=== PATIENT | female | born 1985 | race Caucasian/White ===

== ENCOUNTER → 2017-11-22 | Outpatient (CLI) | payer OTHER ==
[~2017-11-22] MED LIST: AMOXICILLIN500 M2 PO; ANTIBIOTIC O500 U/GM TP; BACTRIM DS 8001 TA1 PO; BACTRIM DS 8001 TAB PO; BUSPAR5 MG PO; CELEXA20 MG PO; CIPROFLOXACIN500 MG PO; CYCLOBENZAPRINE10 MG PO; CYCLOBENZAPRINE5 M3 PO; EFFEXOR XR75 M1 PO; GABAPENTIN300 MG PO; IBUPROFEN400 MG PO; KEFLEX500 M1 PO; MOTRIN800 MG PO; Motrin,Rufen800 MG PO; NEURONTIN400 MG PO; NORCO 5-325 TA1 EACH PO; OMEPRAZOLE20 M2 PO; PEPCID20 MG PO; PROAIR HFA0.09 MG/AC INH; PROAIR HFA8.5 GM INH; PROZAC20 MG PO; SUBOXONE 8 MG-1 EACH SL; ULTRAM50 MG PO; ZUBSOLV 5.7-1.1 EACH SL
[2017-11-23 08:20] LABS: RHEUMATOID ARTHRITIS FACTOR 18.9 IU/mL (0.0-13.9)
[2017-11-23 12:06] LABS: ANTI-SMOOTH MUSCLE ANTIBODY 14 Units (0-19)
== END | disposition home or self-care (01) ==
LOC: LAB 08:53
PROVIDERS: Pediatrics
DX: M54.5 Low back pain (principal)

== ENCOUNTER → 2020-02-14 | Outpatient (CLI) | payer OTHER | END | disposition home or self-care (01) | LOC: COVID19 00:36 | DX: Z11.59 Encounter for screening for other viral diseases (principal) ==

== ENCOUNTER → 2023-12-07 | Outpatient (CLI) | payer OTHER ==
[2023-12-07 11:50] LABS: BASO # 0.1 10*3/uL (0.0-0.1); BASO % 0.9 % (0.0-1.0); EOS # 0.3 10*3/uL (0.0-0.4); HEMATOCRIT 45.5 % (37.0-47.0); LYMPH # 2.6 10*3/uL (1.3-4.4); LYMPH % 27.9 % (27.0-41.0); MEAN CELL VOLUME 90.8 fl (81.0-99.0); MEAN CORPUSCULAR HGB 29.5 pg (27.0-31.0); MEAN CORPUSCULAR HGB CONC 32.5 g/dl (33.0-37.0); MEAN PLATELET VOLUME 9.7 fl (9.6-12.3); MONO # 0.6 10*3/uL (0.1-1.0); NEUT # 5.8 10*3/uL (2.3-7.9); NEUT % 61.9 % (47.0-73.0); PLATELET COUNT AUTOMATED 358 10*3/uL (130-400); RED BLOOD COUNT 5.01 10*6/uL (4.10-5.10); RED CELL DISTRI WIDTH 12.8 % (0-14.5); WHITE BLOOD COUNT 9.3 10*3/uL (4.8-10.8)
[2023-12-07 12:08] LABS: ALKALINE PHOSPHATASE 88 U/L (46-116); BUN 7 mg/dl (9-23); CHLORIDE 102 mmol/L (98-107); POTASSIUM 3.7 mmol/L (3.4-5.1); SGPT/ALT 16 U/L (5-49); TOTAL PROTEIN 7.6 gm/dL (6.0-8.0)
== END | disposition home or self-care (01) ==
LOC: LAB 11:08
PROVIDERS: ATTEND Nurse Practitioner Family
DX: I11.0 Hypertensive heart disease with heart failure (principal); I50.9 Heart failure, unspecified; R06.02 Shortness of breath; Z87.891 Personal history of nicotine dependence

== ENCOUNTER 2024-03-12 13:12 | Inpatient (IN) | payer OTHER ==
[~2024-03-12] VITALS: Ht 170.1 cm; Wt 88.5 kg
[2024-03-12 13:17] VITALS: BP 123/81
[2024-03-12 13:49] LABS: BASO # 0.1 10*3/uL (0.0-0.1); BASO % 0.6 % (0.0-1.0); EOS # 0.5 10*3/uL (0.0-0.4); EOS % 3.6 % (1.0-4.0); LYMPH # 2.3 10*3/uL (1.3-4.4); LYMPH % 17.9 % (27.0-41.0); MEAN CELL VOLUME 91.4 fl (81.0-99.0); MEAN CORPUSCULAR HGB 29.3 pg (27.0-31.0); MEAN PLATELET VOLUME 10.1 fl (9.6-12.3); MONO # 0.6 10*3/uL (0.1-1.0); MONO % 4.9 % (3.0-9.0); NEUT # 9.2 10*3/uL (2.3-7.9); NEUT % 72.4 % (47.0-73.0); PLATELET COUNT AUTOMATED 360 10*3/uL (130-400); RED BLOOD COUNT 5.47 10*6/uL (4.10-5.10); RED CELL DISTRI WIDTH 12.4 % (0-14.5); WHITE BLOOD COUNT 12.7 10*3/uL (4.8-10.8)
[2024-03-12 14:06] LABS: ALKALINE PHOSPHATASE 108 U/L (46-116); BUN 8 mg/dl (9-23); CHLORIDE 101 mmol/L (98-107); POTASSIUM 4.2 mmol/L (3.4-5.1); SGPT/ALT 13 U/L (5-49); TOTAL PROTEIN 7.6 gm/dL (6.0-8.0)
[2024-03-12 14:21] LABS: ETHYL ALCOHOL < 3.0 mg/dl (<3)
[2024-03-12 14:26] LABS: URINE AMPHETAMINES Positive (1000ng/ml); URINE BARBITURATES Negative (200ng/ml); URINE BENZODIAZEPINES Negative (200ng/ml); URINE CANNABINOIDS (THC) Negative (50ng/ml); URINE COCAINE Negative (300ng/ml); URINE METHADONE Negative (300ng/ml); URINE OPIATES Negative (300ng/ml); URINE PHENCYCLIDINE Negative (25ng/ml)
[2024-03-12] MEDS ORDERED: Magnesium Hydroxide 30 ML UDC PO PRN (17:25)
[2024-03-12] MEDS ORDERED: BISACODYL 5 MG TAB PO PRN (17:25)
[2024-03-12] MEDS ORDERED: Ondansetron Hydrochloride 4 MG/2 ML VIAL IV PRN (17:25)
[2024-03-12] MEDS ORDERED: BISACODYL 10 MG SUPP R PRN (17:25)
[2024-03-12] MEDS ORDERED: hydrOXYzine pamoate 25 MG CAP PO ONE (17:25)
[2024-03-12] MEDS ORDERED: ACETAMINOPHEN 650 MG SUPP R PRN (17:25)
[2024-03-12] MEDS ORDERED: ACETAMINOPHEN 325 MG TAB PO PRN (17:25)
[2024-03-12] MEDS ORDERED: Ondansetron Hydrochloride 4 MG/2 ML VIAL IV ONE (17:45)
[2024-03-12] MEDS ORDERED: Naloxone Hydrochloride 2 MG/2 ML SYR NAS ONE (18:20)
[2024-03-12] MEDS ORDERED: Ondansetron Hydrochloride 4 MG TAB SL ONE (18:25)
[2024-03-12] MEDS ORDERED: Naloxone Hydrochloride 2 MG/2 ML SYR ONE ×2 (18:30→18:35)
[2024-03-12 19:13] VITALS: BP 121/52
[2024-03-13] MEDS ORDERED: Enoxaparin Sodium 40 MG/0.4 ML SYR SC SCH (10:00)
== END 2024-03-12 19:57 | disposition left against medical advice (07) | DRG 816 ==
LOC: ED 13:12 → EDHOLD 17:02 → ICCU 19:02
PROVIDERS: Emergency Medicine; ADMIT Internal Medicine; ATTEND Internal Medicine
DX: T40.1X1A Poisoning by heroin, accidental (unintentional), initial encounter (principal); I50.9 Heart failure, unspecified; F41.9 Anxiety disorder, unspecified; F14.10 Cocaine abuse, uncomplicated; F11.10 Opioid abuse, uncomplicated; F32.A Depression, unspecified; E78.5 Hyperlipidemia, unspecified; J44.9 Chronic obstructive pulmonary disease, unspecified; F17.200 Nicotine dependence, unspecified, uncomplicated; Z53.29 Procedure and treatment not carried out because of patient's decision for other reasons; Z90.49 Acquired absence of other specified parts of digestive tract; Y92.89 Other specified places as the place of occurrence of the external cause; Z79.899 Other long term (current) drug therapy; Z79.51 Long term (current) use of inhaled steroids

== ENCOUNTER 2024-12-23 22:40 | Emergency (ER) | payer OTHER ==
[~2024-12-23] VITALS: Wt 66.0 kg
[2024-12-23] MEDS ORDERED: Naloxone Hydrochloride 2 MG/2 ML SYR ONE ×2 (23:01→23:16)
[2024-12-23] MEDS ORDERED: EPINEPHrine IN 0.9 % SOD CHLOR 250 ML IV ONE (23:16)
[2024-12-23 23:24] LABS: BILIRUBIN Negative (Negative); BLOOD Negative (Negative); CLARITY Cloudy (Clear); COLOR Yellow (Yellow); GLUCOSE Negative (Negative); KETONE Negative (Negative); LEUKO ESTERASE Negative (Negative); NITRITE Negative (Negative)
[2024-12-23 23:31] LABS: URINE AMPHETAMINES Negative (1000ng/ml); URINE BARBITURATES Negative (200ng/ml); URINE BENZODIAZEPINES Negative (200ng/ml); URINE CANNABINOIDS (THC) Negative (50ng/ml); URINE COCAINE Negative (300ng/ml); URINE METHADONE Negative (300ng/ml); URINE OPIATES Negative (300ng/ml); URINE PHENCYCLIDINE Negative (25ng/ml)
[2024-12-23] MEDS ORDERED: Midazolam Hydrochloride 5 MG/5 ML VIAL ONE (23:52)
[2024-12-23] MEDS ORDERED: FUROSEMIDE 40 MG/4 ML VIAL ONE (23:55)
[2024-12-24] MEDS ORDERED: FUROSEMIDE 40 MG/4 ML VIAL IV ONE
[2024-12-24 00:06] LABS: BACTERIA TRACE; EPITHELIAL CELLS 16-20; WBC 0-2 wbc/hpf (0-5)
[2024-12-24] MEDS ORDERED: PROPOFOL 100 ML IV ONE (00:17)
[2024-12-24] MEDS ORDERED: PROPOFOL 50 ML IV SCH (00:30)
[2024-12-24] MEDS ORDERED: dexmedeTOMIDine IN 0.9 % NACL 100 ML IV SCH (00:30)
[2024-12-24 00:34] LABS: HEMATOCRIT 42.8 % (37.0-47.0); MEAN CELL VOLUME 87.3 fl (81.0-99.0); MEAN CORPUSCULAR HGB 26.5 pg (27.0-31.0); MEAN CORPUSCULAR HGB CONC 30.4 g/dl (33.0-37.0); MEAN PLATELET VOLUME 9.9 fl (9.6-12.3); PLATELET COUNT AUTOMATED 403 10*3/uL (130-400); RED CELL DISTRI WIDTH 13.2 % (0-14.5); WHITE BLOOD COUNT 31.9 10*3/uL (4.8-10.8)
[2024-12-24 00:42] LABS: MANUAL DIFF REFLEX YES
[2024-12-24] MEDS ORDERED: Midazolam Hydrochloride 5 MG/5 ML VIAL ONE (00:45)
[2024-12-24] MEDS ORDERED: dexmedeTOMIDine IN 0.9 % NACL 100 ML IV ONE (00:58)
[2024-12-24 01:02] LABS: PLATELET SUFFICIENCY NORMAL (NORMAL); TOTAL CELLS COUNTED 100 #CELLS
[2024-12-24 01:33] LABS: ALKALINE PHOSPHATASE 139 U/L (46-116); BUN 11 mg/dl (9-23); CHLORIDE 104 mmol/L (98-107); POTASSIUM 4.4 mmol/L (3.4-5.1); SGPT/ALT 13 U/L (5-49); TOTAL PROTEIN 6.5 gm/dL (6.0-8.0)
[2024-12-24] MEDS ORDERED: Pantoprazole Sodium 40 MG VIAL IV ONE (01:35)
[2024-12-24] MEDS ORDERED: Piperacillin Sodium/Tazobact 50 ML IV ONE (01:35)
[2024-12-24] MEDS ORDERED: ROCURONIUM BROMIDE 50 MG/5 ML SYRINGE IV ONE ×5 (01:50→10:15)
[2024-12-24] MEDS ORDERED: SODIUM CHLORIDE 0.9% 1,000 ML IV ONE (02:12)
[2024-12-24 02:33] LABS: ABG BASE EXCESS -0.4 mmol/L (-2.0-3.0); ABG O2 SATURATION 97.8 % (94.0-98.0); ARTERIAL BLOOD GAS PH 7.367 (7.350-7.450); ARTERIAL BLOOD GAS PO2 112.1 mmHg (83.0-108.0)
[2024-12-24] MEDS ORDERED: fentaNYL CITRATE 100 MCG/2 ML VIAL IV ONE (09:30)
[2024-12-24] MEDS ORDERED: EPINEPHrine IN 0.9 % SOD CHLOR 250 ML IV SCH (09:45)
[2024-12-24] MEDS ORDERED: EPINEPHrine IN 0.9 % SOD CHLOR 250 ML IV ONE (09:55)
[2024-12-24 10:53] LABS: ABG O2 SATURATION 94.3 % (94.0-98.0); ARTERIAL BLOOD GAS PH 7.362 (7.350-7.450); ARTERIAL BLOOD GAS PO2 69.7 mmHg (83.0-108.0)
[2024-12-27] MEDS ORDERED: SODIUM BICARBONATE 50 MEQ/50 ML SYR IV ONE (14:26)
[2024-12-27] MEDS ORDERED: DEXTROSE 50% 25 GM/50 ML SYR IV ONE (14:26)
[2024-12-27] MEDS ORDERED: Naloxone Hydrochloride 2 MG/2 ML SYR IV ONE (14:26)
[2024-12-27] MEDS ORDERED: ATROPINE SULFATE 1 MG/10 ML SYR IV ONE (14:26)
[2024-12-27] MEDS ORDERED: EPINEPHrine Hydrochloride 1 MG/10 ML SYR IV ONE (14:26)
== END 2024-12-24 11:51 | disposition short-term general hospital (02) ==
LOC: ED 22:52
PROVIDERS: Emergency Medicine; Internal Medicine
DX: I46.9 Cardiac arrest, cause unspecified (principal); F17.200 Nicotine dependence, unspecified, uncomplicated; Z79.899 Other long term (current) drug therapy; Z90.49 Acquired absence of other specified parts of digestive tract; Z90.89 Acquired absence of other organs; Z98.890 Other specified postprocedural states